=== PATIENT | female | born 1955 | race Caucasian/White ===

== ENCOUNTER → 2017-01-26 | Outpatient (CLI) | payer BC ==
[~2017-01-26] MED LIST: AMBIEN PO; AMBIEN10 MG PO; ASPIRIN EC81 M1 PO; ASPIRIN PO; CELEBREX PO; EFFEXOR75 MG PO; SYNTHROID PO; TRAZODONE PO; WELLBUTRIN PO
--- NOTE | ~2017-01-26 | MY29 ---
[facility] A Service of [facility] RADIOLOGY TEXT RESULTS PATIENT: CARLOS DICKENS LOCATION: [facility] : 55 UNIT #: [id number] AGE: [address]: Fernando Mabry MD SEX: F ORDER DR: [id number] [facility] [address] [place], [place] [address] [id number] O MR#: [id number] Acc #: [id number] NAME: CARLOS DICKENS : 1955 SEX: F STUDY DATE/TIME: 01/26/2017 15:25 UNIT: [facility] ROOM: STUDY DESCRIPTION: MY MARIO SCREENING W/ CAD BILAT Attending Physician: Fernando Mabry M.D. Referring Physician: Fernando Mabry M.D. Ordering Physician: Fernando Mabry M.D. Primary Care Physician: Mari Carreon M.D. MEDICAL IMAGING REPORT This report is preliminary unless electronic signature is present EXAM Bilateral digital screening implant mammograms 01/26/2017 HISTORY 61-year-old woman previous augmentation. Prior breast biopsy. Positive family history, mother age 60. COMPARISON Mammograms date to 09/08/2005 with most recent 09/15/2015. FINDINGS Digital imaging of each breast was completed utilizing conventional projections and standard Dominic views. Review includes FDA-approved CAD device. Bilateral retropectoral implants are imaged. There is a confined silicone leak laterally and superiorly right breast. I believe this is a stable. It is confined. Breast parenchyma is fatty replaced bilaterally. There is no interval occurring breast mass. There are no suspicious microcalcifications and no architectural deformity. IMPRESSION Negative mammogram. Retropectoral silicone implants with confined leak superolateral right implant. Silicone is confined. This appears stable overall. Patients over the age of 40 are entered into a reminder system with target due date for the next mammogram. A result letter will also be sent to the patient. BIRADS: 1, negative. Dictated by... Silver Lai M.D. [facility] A Service of [facility] RADIOLOGY TEXT RESULTS PATIENT: CARLOS DICKENS LOCATION: [facility] : 55 UNIT #: [id number] AGE: [address]: Fernando Mabry MD SEX: F ORDER DR: THIS IS AN ELECTRONICALLY VERIFIED REPORT Silver Lai M.D. at 01/27/2017 8:04 AM Miryam TD: 01/26/2017 18:19 JOB #: [id number] MEDICAL IMAGING REPORT Page 1 of 1 COPY
== END | disposition home or self-care (01) ==
LOC: CWCC 15:09
DX: Z12.31 Encounter for screening mammogram for malignant neoplasm of breast (principal); Z80.3 Family history of malignant neoplasm of breast; T85.43XA Leakage of breast prosthesis and implant, initial encounter
CPT/HCPCS: G0202